=== PATIENT | male | born 1960 | race Caucasian/White ===

== ENCOUNTER 2018-02-13 11:26 | Emergency (ER) | payer OTHER ==
[~2018-02-13] VITALS: Ht 188 cm; Wt 88.0 kg
[~2018-02-13 11:26] MED LIST: LASIX40 MG PO; LOPRESSOR25 MG PO; Pradaxa PO; ZESTRIL,PRINIVI10 M1 PO; [UNRECOGNIZED DRUG - REMARK]
[2018-02-13] MEDS ORDERED: MOTRIN800 MG PO (12:20)
[2018-02-13 12:59] VITALS: BP 106/77
== END 2018-02-13 13:01 | disposition home or self-care (01) ==
LOC: EME 11:26
DX: S39.012A Strain of muscle, fascia and tendon of lower back, initial encounter (principal); V49.40XA Driver injured in collision with unspecified motor vehicles in traffic accident, initial encounter; Y92.410 Unspecified street and highway as the place of occurrence of the external cause; I50.9 Heart failure, unspecified
CPT/HCPCS: 72100; 99281; 99283